=== PATIENT | male | born 1945 | race Hispanic/Latino ===

== ENCOUNTER 2017-07-20 13:11 | Emergency (ER) | payer MEDICARE ==
[2017-07-20 13:11] VITALS: BMI 25.7
[2017-07-20 13:34] VITALS: TEMP 97.9
--- NOTE | 2017-07-20 15:07 | RAD ---
HISTORY: constipation r/o obstruction COMPARISON: No prior. FINDINGS: BOWEL: There is moderate distention of the colon with no obvious fecal retention. Findings may represent a colonic ileus. There is no small bowel dilatation BONES: Normal. OTHER FINDINGS: None. IMPRESSION: There is moderate distention of the colon with no obvious fecal retention. Findings may represent a colonic ileus. There is no small bowel dilatation
--- NOTE | 2017-07-20 15:23 | ED PDOC ---
Arrival/HPI - General Chief Complaint: GI Problem Time Seen by Provider: 07/20/17 13:41 Historian: Patient - History of Present Illness Narrative History of Present Illness (Text): 07/20/17 15:19 71yo male with PMhx of hypertension, hyperlipdemia, BPH who present with one month history of intermittent constipation. States he saw his Doctor was was given OTC medication for constipation. He states he used Magnesium Citrate with mild relieve. He denies abdominal pain, nausea, vomiting, melena, hematemesis, any other complaint. Past Medical History - Provider Review Nursing Documentation Reviewed: Yes - Infectious Disease Hx of Infectious Diseases: None - Cardiac Hx Cardiac Disorders: Yes Hx KS: Yes Hx Hypertension: Yes - Pulmonary Hx Respiratory Disorders: No - Neurological Hx Neurological Disorder: No - HEENT Hx HEENT Disorder: No - Renal Hx Renal Disorder: No - Endocrine/Metabolic Hx Endocrine Disorders: No - Hematological/Oncological Hx Blood Disorders: Yes Hx Cancer: Yes (COLON) - Integumentary Hx Dermatological Disorder: No - Musculoskeletal/Rheumatological Hx Musculoskeletal Disorders: No - Gastrointestinal Hx Gastrointestinal Disorders: Yes Other/Comment: colon CA with chemo - Genitourinary/Gynecological Hx Genitourinary Disorders: Yes Hx Prostate Problems: Yes (enlarged) - Psychiatric Hx Psychophysiologic Disorder: Yes Hx Depression: Yes Hx Substance Use: No - Surgical History Hx Coronary Stent: Yes - Anesthesia Hx Anesthesia: Yes - Suicidal Assessment Feels Threatened In Home Enviroment: No Family/Social History - Physician Review Nursing Documentation Reviewed: Yes Family/Social History: Unknown Family HX Smoking Status: Former Smoker Hx Alcohol Use: Yes (QUIT 3 YRS AGO- PAST ETOH ABUSE) Hx Substance Use: No Allergies/Home Meds Allergies/Adverse Reactions: Allergies No Known Allergies Allergy (Verified 07/20/17 13:26) Home Medications: Home Meds Medication Instructions Recorded Confirmed Tamsulosin [Flomax] 0.4 mg PO QPM 12/06/14 07/20/17 Clopidogrel [Plavix] 75 mg PO DAILY 11/28/15 07/20/17 Metoprolol Tartrate [Lopressor] 25 mg PO BID 11/28/15 07/20/17 Simvastatin [Simvastatin] 80 mg PO DAILY 07/20/17 07/20/17 Review of Systems - Physician Review All systems were reviewed & negative as marked: Yes - Review of Systems Constitutional: Normal Eyes: Normal ENT: Normal Respiratory: Normal Cardiovascular: Normal Gastrointestinal: Constipation. absent: Abdominal Pain, Diarrhea, Nausea, Vomiting, Hematochezia, Hematemesis Genitourinary Male: Normal Musculoskeletal: Normal Skin: Normal Neurological: Normal Endocrine: Normal Hemo/Lymphatic: Normal Psychiatric: Normal Physical Exam Vital Signs Reviewed: Yes Vital Signs Temp Pulse Resp BP Pulse Ox 07/20/17 15:11 59 L 18 135/71 98 07/20/17 13:28 97.9 F 57 L 16 137/77 98 Temperature: Afebrile Blood Pressure: Normal Pulse: Regular Respiratory Rate: Normal Appearance: Positive for: Well-Appearing, Non-Toxic, Comfortable Pain Distress: None Mental Status: Positive for: Alert and Oriented X 3 - Systems Exam Head: Present: Atraumatic, Normocephalic Pupils: Present: PERRL Extroacular Muscles: Present: EOMI Conjunctiva: Present: Normal Mouth: Present: Moist Mucous Membranes Neck: Present: Normal Range of Motion Respiratory/Chest: Present: Clear to Auscultation, Good Air Exchange. No: Respiratory Distress, Accessory Muscle Use Cardiovascular: Present: Regular Rate and Rhythm, Normal S1, S2. No: Murmurs Abdomen: Present: Other (soft). No: Tenderness, Distention, Peritoneal Signs, Rebound, Guarding, McBurney's Point Tender, Rovsing's Sign Present Back: Present: Normal Inspection Upper Extremity: Present: Normal Inspection. No: Cyanosis, Edema Lower Extremity: Present: Normal Inspection. No: Edema Neurological: Present: GCS=15, CN II-XII Intact, Speech Normal Skin: Present: Warm, Dry, Normal Color. No: Rashes Psychiatric: Present: Alert, Oriented x 3, Normal Insight, Normal Concentration Medical Decision Making ED Course and Treatment: 07/20/17 19:43 PT presented for stated history. He denied abdominal pain, nausea, vomiting in ED. His PE was benign, soft. Abdominal xray - No air/fluid level. No fecal material noted. Result was DW the pt. He was referred to GI. Mirlax rx given. - RAD Interpretation Radiology Orders: 07/20/17 13:53 ABDOMEN (FLAT PLATE) 1VIEW [RAD] Stat - Medication Orders Current Medication Orders: Discontinued Medications Sodium Phosphate (Fleet Enema) 135 ml RC STAT STA Stop: 07/20/17 13:55 Last Admin: 07/20/17 15:03 Dose: 135 ml Disposition/Present on Arrival - Present on Arrival Any Indicators Present on Arrival: No History of DVT/PE: No History of Uncontrolled Diabetes: No Urinary Catheter: No History of Decub. 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
[2017-07-20 20:40] VITALS: BP 140/67; PULSE 60; RESP 16; O2SAT 99
== END 2017-07-20 16:51 | disposition home or self-care (01) ==
LOC: ED 13:11
DX: K59.00 Constipation, unspecified (principal)

== ENCOUNTER 2018-04-19 09:40 | Outpatient (CLI) | payer MEDICARE | END 2018-04-19 09:41 | disposition home or self-care (01) | LOC: RAD 09:40 ==

== ENCOUNTER 2018-04-27 12:29 | Outpatient (CLI) | payer MEDICARE | END 2018-04-27 12:30 | disposition home or self-care (01) | LOC: CARDIO 12:29 | DX: R00.2 Palpitations (principal) ==

== ENCOUNTER 2018-06-17 06:42 | Day surgery (SDC) | payer MEDICARE ==
[2018-06-17 07:02] VITALS: BMI 21.7
[2018-06-17] MEDS ORDERED: Simethicone 40 mg/0.6 ml Liquid (30 ml) ONE (07:55)
[2018-06-17] MEDS ORDERED: Propofol 10 mg/ml Inj (20 ML) ONE ×3 (07:56→09:47)
[2018-06-17] MEDS ORDERED: Etomidate 20 mg/10ml Inj IV ONE (07:56)
[2018-06-17] MEDS ORDERED: Phenylephrine 10 mg/ml Inj ONE (07:57)
[2018-06-17] MEDS ORDERED: Sodium Chloride 0.9% 1,000 ML IV SCH (09:15)
--- NOTE | 2018-06-17 09:20 | CARD ---
APPROVED REPORT Date of service: 06/17/2018 EKG Measurement Heart [id number] <Conclusion> Sinus bradycardia Otherwise normal ECG
[2018-06-17 14:40] VITALS: BP 136/560; PULSE 58; RESP 16; TEMP 97.8; O2SAT 98
== END 2018-06-17 11:24 | disposition home or self-care (01) ==
LOC: ENDO 06:42
PROVIDERS: ATTEND Internal Medicine Gastroenterology
DX: D12.0 Benign neoplasm of cecum (principal); D12.2 Benign neoplasm of ascending colon; K62.1 Rectal polyp; K57.30 Diverticulosis of large intestine without perforation or abscess without bleeding; K64.1 Second degree hemorrhoids; Z85.038 Personal history of other malignant neoplasm of large intestine; R63.4 Abnormal weight loss; Z98.0 Intestinal bypass and anastomosis status; I10 Essential (primary) hypertension; I25.10 Atherosclerotic heart disease of native coronary artery without angina pectoris
CPT/HCPCS: 45380; 45381; 45385; 88305; 93005; J2001; J2370; J2704; J7030; J7040